=== PATIENT | male | born 1960 | race Caucasian/White ===

== ENCOUNTER → 2017-10-05 | Outpatient (CLI) | payer BC ==
[2015-03-16 13:00] VITALS: BMI 35.3
[~2017-10-05] MED LIST: ACE325 PO; ACET-2031 PO; AMO875 PO; AMOX-559 PO; AMOX1TAB9 PO; ANDROGEL; AUG875 PO; BACDS PO; CEP500 PO; ENOX40DI13 SC; ERT1P IV; GADOBENATE 529MG/1ML 15ML VIAL IVP ONE; GLI5 PO; GLY5 PO; HYDR1TAB PO; INSU100I30 SQ; LANI SC; LEV25 PO; LISI-362 PO; LIT300 PO; LIT300CAP PO; LITH300T18 PO; LOR5 PO; METF-415 PO; METF-420 PO; METXR500 PO; MOD100 PO; MODA200T55 PO; MOM PO; MULT-1335 PO; NICO1PAT TD; PAR20 PO; PARO10TA78 PO; PARO25TA18 PO; QUET25TA30 PO; QUET50TA21 PO; TESTOSTERONE INJ; VANC1FRO2 IV
--- NOTE | 2017-10-05 15:12 | RADIOLOGY IMAGING REPORT ---
FACILITY: [facility] [place] PATIENT NAME: Gallito Sanchez : 1960 MR: [id number] V: [id number] EXAM DATE: ORDERING PHYSICIAN: SOFIYA ESPINOZA TECHNOLOGIST: Location[place] [facility] [place] Patient: Gallito Sanchez : 1960 Visit/Account:[id number] Date of Sevice: 10/05/2017 BRAIN W W/O CONTRAST Comparisons: None. Additional pertinent history: Altered mental status TECHNIQUE: Multiplanar, multisequence brain MRI was performed with and without gadolinium contrast. CONTRAST: 15 ml of MultiHance. FINDINGS: Sagittal midline structures and craniocervical junction: Negative. Midline shift: None. Ventricles: Negative. Brain parenchyma: Diffusion weighted imaging: Negative. Gradient sequence: Negative. T2 weighted FLAIR images: Negative. Extra-axial spaces: Negative. Dural venous sinuses and major arterial flow voids: Negative. Intracranial enhancement: Negative.. Mastoid air cells and paranasal sinuses: Negative. Surrounding soft tissues and orbits: Negative. Impression: Normal brain MRI with and without contrast. Report Dictated By: Gallito Nguyen MD at 10/05/2017 3:04 PM Report E-Signed By: Gallito Nguyen MD at 10/05/2017 3:08 PM WSN:[id number]
== END ==
LOC: MRI 07:16
PROVIDERS: ATTEND Family Medicine
DX: R41.82 Altered mental status, unspecified (principal)
CPT/HCPCS: 70553; A9577

== ENCOUNTER → 2018-02-14 | Outpatient (CLI) | payer BC ==
[2015-03-16 13:00] VITALS: BMI 35.3
[~2018-02-14] MED LIST changes: -GADOBENATE 529MG/1ML 15ML VIAL IVP ONE; +METF-421 PO
== END ==
LOC: LAB 19:58
PROVIDERS: ATTEND Family Medicine
DX: F31.30 Bipolar disorder, current episode depressed, mild or moderate severity, unspecified (principal)
CPT/HCPCS: 36415; 80178

== ENCOUNTER 2019-01-02 14:00 | Outpatient (RCR) | payer BC ==
--- NOTE | 2018-12-30 11:38 | PT INITIAL EVALUATION ---
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 TREATMENT DIAGNOSIS: same DATE OF ONSET: approximately 3 months ago (Sep 2018) SUBJECTIVE: . Pt has a previous R) BKA and states that he has been addressing this wound at home with assistance from his for the past "few months". Pt is now concerned that this may progress to an amputation as well and would like to be more proactive in treatment. REHAB PROBLEM LIST: Open wound at L) foot PREVIOUS MEDICAL HISTORY: Previous R) BKA; DM OCCUPATION: Retired OBJECTIVE: Wound at L) foot; plantar surface of the 5th MTP joint measures 1.5cm L x 1.5cm W x 0.3cm D with significant periwound callus formation. Pt's orthodics show a wrinkle in this area and pt notes that he has not followed up with [employer]. ASSESSMENT: Non-excisional debridement completed with the use of scissors and tweezers to a depth of subcutaneous tissue in order to remove central area of yellow slough and bevel callused edges down to healthy wound base. Wound cleansed with sterile saline and covered with silver calcium alginate followed by donut of qwick for off loading and secured with medipore tape. Pt provided with primapore dressing in the event that this dressing becomes contaminated, overly saturated or dislodged. Custom orthodics show a wrinkle in the area of wound and PT will contact [facility] [place] to schedule an appointment and schedule consult with Dr. Klein to evaluate for total contact casting potential. Next vist with pt will be on 01/02 at 2:00pm in order to coordinate with schedule of [facility] [place] orthodics provider who will be available to adjustments to insole. Pt also scheduled with Dr. Klein on 01/07/29 to consult on need for total contact casting. Short Term Goals 1. Pt to demonstrate compliance with off loading and maintaining dressing clean, dry and intact between visits. 2. Wound bed to show 100% granulation with edges of dermis growing inward without encroachment of callus. 3. Pt to follow up effectively with specialists and manage medications as prescribed in order to maintain BS in safe range. 4. Wound to close fully without signs or symptoms of infection. Patient's Goals Wound to heal without further complications. PLAN: Patient to be seen for selective debridement of wound as indicated and advanced wound care product selection to maintain a protected, moist wound healing environment. PT to assist in coordinating consult visits to optimize off loading to encourage efficient wound healing. 1x/Week for up to 3 months Thank you for this referral. If you have any questions, comments, or concerns about this report or plan, please contact me at . H. Marni Albert, PT, MPT, OMS MTDD
[~2019-01-02 14:00] MED LIST changes: -METF-421 PO; +METF-452 PO
[2019-01-03 14:26] VITALS: BMI 41.1
== END 2019-01-02 18:00 | disposition home or self-care (01) ==
LOC: PT 14:00
PROVIDERS: ATTEND Family Medicine
DX: E11.621 Type 2 diabetes mellitus with foot ulcer (principal); L97.502 Non-pressure chronic ulcer of other part of unspecified foot with fat layer exposed
CPT/HCPCS: 97161

== ENCOUNTER 2019-01-02 15:29 | Inpatient (IN) | payer BC ==
[~2019-01-02] VITALS: Ht 180.3 cm; Wt 134.0 kg
--- NOTE | 2019-01-02 15:55 | ER Report ---
History and Physical Time Seen By MD: 15:48 Hx. of Stated Complaint: signs of infection in wound on left foot, vomiting, fever HPI/ROS CHIEF COMPLAINT: foot infection HISTORY OF PRESENT ILLNESS: Pt sent over from wound care for left leg infection. PT had lost his right lwer leg due to diabetic ulcer. Pt started with a new diabetic ulcer on ball of left foot 5 months ago. Started wound care on Sunday. was seen today by Carlee and was sent to the emergency department. The redness to the top of his foot and garza are new since Sunday. Pt states he has had tactile fevers and chills. Did vomit this morning but does not feel nauseated. Pt denies abd pain. Pt found to be hypoxic but states "that is not new..Dr. Espinoza keeps threatening me with oxygen". PT davi chest pain or abd pain. REVIEW OF SYSTEMS: Constitutional: + fever, + chills. Eyes: No discharge. ENT: No sore throat. Cardiovascular: No chest pain, no palpitations. Respiratory: No cough, no shortness of breath. Gastrointestinal: No abdominal pain, no vomiting. Genitourinary: No hematuria. Musculoskeletal: No back pain. Skin: + left diabetic ulcer of foot, + erythema to left lower leg Neurological: No headache. Allergies: Coded Allergies: No Known Drug Allergies (Verified , 05/07/12) Home Meds Reported Medications Insulin Glargine 100 Un/Ml Pen (LANTUS SOLOSTAR PEN) 100 Unit/1 Ml Insuln.pen, 30 UNIT SQ BID 02/19/15 Lisinopril (LISINOPRIL) 10 Mg Tablet, 10 MG PO QDAY 02/19/15 Paroxetine Hcl (PAROXETINE HCL) 25 Mg Tab.er.24h, 2 TAB PO QAM 02/19/15 Quetiapine Fumarate (SEROQUEL) 25 Mg Tablet, 2 TAB PO QHS 02/19/15 Modafinil (PROVIGIL) 200 Mg Tablet, 0.5 TAB PO QAM 02/19/15 [place] Carbonate (LITHIUM CARBONATE) 300 Mg Cap, 150 MG PO BID, CAP 02/19/15 Metformin Hcl (METFORMIN HCL) 1,000 Mg Tablet, 1 TAB PO BID, TAB 02/19/15 Discontinued Scripts Amoxicillin/Potassium Clav (AMOX TR-K CLV 875-125 MG TAB) 1 Each Tablet, 1 TAB PO Q12H, #14 TAB 0 Refills Prov:ANNA GARCIA MD 04/13/15 Past Medical/Surgical History pmhx: htn, bipolar, dm Pshx: RBKA Reviewed Nurses Notes: Yes Old Medical Records Reviewed: Yes Hx Smoking: Yes Smoking Status: Former Smoker (1ppd x 30 years) Hx Substance Use Disorder: No Hx Alcohol Use: No Constitutional Vital Sign - Last 24 Hours 01/02/19 01/02/19 15:39 15:50 Temp 99.5 Pulse 93 Resp 16 B/P (MAP) 152/73 Pulse Ox 81 O2 Delivery Room Air O2 Flow Rate 2.0 Physical Exam General Appearance: The patient is alert, has no immediate need for airway protection and no signs of toxicity. Eyes: Pupils equal and round no pallor or injection, EOMI ENT: no pharyngeal erythema or exudates, Mucous membranes are moist Respiratory: There are no retractions, lungs are clear to auscultation. Cardiovascular: Regular rate and rhythm. pulses are equal and symmetrical Gastrointestinal: Abdomen is soft and non tender, no masses, bowel sounds normal, no guarding, no rigidity or rebound, + obese Neurological: Cranial nerves II-XII grossly intact, no sensory or motor loss Skin: + 2cm ulceration at distal 5th metatarsal on left foot that has granulation tissue and is not draining and recently debrided; + erhythema and warmth to top of left foot with extension to mid garza on left. Musculoskeletal: Neck is supple non tender, no vertebral tenderness Upper Extremities are nontender, nonswollen and have full range of motion.; R lower extremity is BKA; left lower extremity full range of motion with swelling to top of left foot and erythema as per skin exam DIFFERENTIAL DIAGNOSIS: After history and physical exam differential diagnosis was considered for cellulitis, osteomyelitis, pneumonia Medical Decision Making Data Points Result Diagram: 01/02/19 1548 01/02/19 1548 Laboratory Hematology Test 01/02/19 00:00 01/02/19 15:48 [place] Level 0.9 mmol/L (0.6-1.2) Red Blood Count 5.14 M/uL (4.00-5.60) Mean Corpuscular Volume 86.9 fL (80.0-96.0) Mean Corpuscular Hemoglobin 27.8 pg (26.0-33.0) Mean Corpuscular Hemoglobin Concent 31.9 g/dL (32.0-36.0) Red Cell Distribution Width 16.5 % (11.5-14.5) Mean Platelet Volume 9.2 fL (7.2-11.1) Neutrophils (%) (Auto) 76.2 % (39.4-72.5) Lymphocytes (%) (Auto) 13.8 % (17.6-49.6) Monocytes (%) (Auto) 6.9 % (4.1-12.4) Eosinophils (%) (Auto) 2.5 % (0.4-6.7) Basophils (%) (Auto) 0.6 % (0.3-1.4) Nucleated RBC Relative Count (auto) 0.0 /100WBC Neutrophils # (Auto) 10.0 K/uL (2.0-7.4) Lymphocytes # (Auto) 1.8 K/uL (1.3-3.6) Monocytes # (Auto) 0.9 K/uL (0.3-1.0) Eosinophils # (Auto) 0.3 K/uL (0.0-0.5) Basophils # (Auto) 0.1 K/uL (0.0-0.1) Nucleated RBC Absolute Count (auto) 0.00 K/uL Sodium Level 136 mmol/L (137-145) Potassium Level 4.8 mmol/L (3.5-5.0) Chloride Level 102 mmol/L (98-107) Carbon Dioxide Level 24 mmol/L (22-30) Blood Urea Nitrogen 22 mg/dl (9-21) Creatinine 1.10 mg/dl (0.66-1.25) Glomerular Filtration Rate Calc > 60.0 Random Glucose 252 mg/dl (75-110) Lactate 2.2 mmol/L (0.7-2.1) Calcium Level 9.0 mg/dl (8.4-10.2) Total Bilirubin 1.1 mg/dl (0.2-1.3) Aspartate Amino Transf (AST/SGOT) 14 U/L (0-35) Alanine Aminotransferase (ALT/SGPT) 25 U/L (0-56) Alkaline Phosphatase 62 U/L (0-126) Total Protein 6.6 g/dl (6.3-8.2) Albumin 3.5 g/dl (3.5-5.0) Chemistry Test 01/02/19 00:00 01/02/19 15:48 [place] Level 0.9 mmol/L (0.6-1.2) White Blood Count 13.1 k/uL (4.5-11.0) Red Blood Count 5.14 M/uL (4.00-5.60) Hemoglobin 14.3 g/dL (14.0-18.0) Hematocrit 44.7 % (42.0-52.0) Mean Corpuscular Volume 86.9 fL (80.0-96.0) Mean Corpuscular Hemoglobin 27.8 pg (26.0-33.0) Mean Corpuscular Hemoglobin Concent 31.9 g/dL (32.0-36.0) Red Cell Distribution Width 16.5 % (11.5-14.5) Platelet Count 253 K/uL (150-450) Mean Platelet Volume 9.2 fL (7.2-11.1) Neutrophils (%) (Auto) 76.2 % (39.4-72.5) Lymphocytes (%) (Auto) 13.8 % (17.6-49.6) Monocytes (%) (Auto) 6.9 % (4.1-12.4) Eosinophils (%) (Auto) 2.5 % (0.4-6.7) Basophils (%) (Auto) 0.6 % (0.3-1.4) Nucleated RBC Relative Count (auto) 0.0 /100WBC Neutrophils # (Auto) 10.0 K/uL (2.0-7.4) Lymphocytes # (Auto) 1.8 K/uL (1.3-3.6) Monocytes # (Auto) 0.9 K/uL (0.3-1.0) Eosinophils # (Auto) 0.3 K/uL (0.0-0.5) Basophils # (Auto) 0.1 K/uL (0.0-0.1) Nucleated RBC Absolute Count (auto) 0.00 K/uL Glomerular Filtration Rate Calc > 60.0 Lactate 2.2 mmol/L (0.7-2.1) Calcium Level 9.0 mg/dl (8.4-10.2) Total Bilirubin 1.1 mg/dl (0.2-1.3) Aspartate Amino Transf (AST/SGOT) 14 U/L (0-35) Alanine Aminotransferase (ALT/SGPT) 25 U/L (0-56) Alkaline Phosphatase 62 U/L (0-126) Total Protein 6.6 g/dl (6.3-8.2) Albumin 3.5 g/dl (3.5-5.0) Toxicology Test 01/02/19 00:00 [place] Level 0.9 mmol/L (0.6-1.2) EKG/Imaging Imaging see report ED Course/Re-evaluation Clinical Indication for ER IV: IV Access ED Course check labs including lactate and cultures. Will need to have abx. 01/02/2019 5:10:[address] rowley accepts patient for admission. will add MRI of foot. Decision to Disposition Date: Jan 02, 2019 Decision to Disposition Time: 17:10 Depart Departure Latest Vital Signs Vital Signs Date Time Temp Pulse Resp B/P (MAP) Pulse Ox O2 Delivery O2 Flow Rate FiO2 01/02/19 15:50 2.0 01/02/19 15:39 99.5 93 16 152/73 81 Room Air Impression: Primary Impression: Cellulitis of left foot Additional Impression: Diabetic foot ulcer Condition: Condition Unchanged Disposition: Admitted from ER Referrals: SOFIYA ESPINOZA DO (PCP) Problem Qualifiers Additional Impression: Diabetic foot ulcer Diabetic foot ulcer location: unspecified part of foot Diabetes mellitus type: type 2 Laterality: left Non-pressure ulcer stage: with fat layer exposed Qualified Codes: E11.621 - Type 2 diabetes mellitus with foot ulcer ; L97.522 - Non-pressure chronic ulcer of other part of left foot with fat layer exposed NBA BRUNSON DO Jan 02, 2019 15:55
[2019-01-02] MEDS ORDERED: NS(*) 0.9% 1000 ML BAG 1,000 ML IV ONE (16:04)
[2019-01-02 16:15] LABS: PLATELET COUNT, AUTOMATED 253 K/uL (150-450)
[2019-01-02] MEDS ORDERED: PIPERACILLIN/TAZO* 4.5 GM VIAL 4.5 GM in NS(*) 0.9% 100 ML MINI-BAG 100 ML IVPB ONE (16:15)
--- NOTE | 2019-01-02 16:49 | RADIOLOGY IMAGING REPORT ---
FAC[place] [facility] [place]IENT NAME: Gallito Sanchez : 1960 MR: [id number] V: [id number] EXAM DATE: ORDERING PHYSICIAN: NBA BRUNSON TECHNOLOGIST: [facility] Patient: Gallito Sanchez : 1960 Visit/Account:[id number] Date of Sevice: 01/02/2019 Exam type: FOOT 3 VIEW LEFT History: foot ulcer under 5th metatarsal; r/o osteo Comparison: None. Findings: There is extensive soft tissue swelling lateral to the left MTP joint there are mild areas of focal o steopenia involving the distal head of the left fifth metatarsal and the medial base of the proximal phalanx of the left fifth toe. These could be early changes of osteomyelitis there is a subtle amoun t of adjacent soft tissue gas. Incidentally noted is hallux valgus deformity involving the left firs t metatarsal phalangeal joint and moderate degenerative changes involving the IP joint left great toe IMPRESSION: 1. Extensive soft tissue swelling lateral to the left fifth MTP joint with suggestion of a small lavon unt of adjacent soft tissue gas and areas of focal osteopenia involving the distal head the left fift h metatarsal and medial base of the proximal phalanx of the left fifth toe. These findings may repre sent osteomyelitis. MR is recommended for further evaluation Report Dictated By: Chela Rodatre MD at 01/02/2019 4:42 PM Report E-Signed By: Chela Rodarte MD at 01/02/2019 4:45 PM WSN:[email or web address]
--- NOTE | 2019-01-02 16:53 | RADIOLOGY IMAGING REPORT ---
FACILITY: [facility] - [place] PATIENT NAME: Gallito Sanchez : 1960 MR: [id number] V: [id number] EXAM DATE: [id number] ORDERING PHYSICIAN: NBA BRUNSON TECHNOLOGIST: Location: [facility] [place] Patient: Gallito Sanchez : 1960 Visit/Account:[id number] Date of Sevice: 01/02/2019 Exam type: CHEST PA LAT History: FEVER Comparison: February 25, 2015. Findings: There is extensive peribronchial thickening throughout the lungs which has increased when compared th e prior study. No lobar consolidation identified. There is no evidence of pleural effusions. The c ardiac silhouette is normal in size. There are spondylotic changes of the thoracic spine. The media stinum appears slightly widened although this likely related to the apical lordotic projection of the study IMPRESSION: 1. There is marked peribronchial thickening bilaterally which has increased when compared to the luis or study. Given the clinical history this likely represents an acute infectious/inflammatory process The mediastinum appears slightly widened although this is likely related to the apical lordotic proje ction of the study Report Dictated By: Chela Rodarte MD at 01/02/2019 4:45 PM Report E-Signed By: Chela Rodarte MD at 01/02/2019 4:48 PM WSN:[email or web address]
[2019-01-02 19:10] VITALS: BP 162/78
[2019-01-02] MEDS ORDERED: ACETAMINOPHEN 500 MG TAB PO PRN (20:55)
--- NOTE | 2019-01-02 21:06 | History & Physical ---
History of Present Illness Chief Complaint Redness of foot History of Present Illness This patient presented to his outpatient wound care appointment and was noted to have increased redness to the left foot. He has been receiving wound care for an ulcer to the plantar surface of the foot, but was noted to have increased warmth and redness along the dorsal surface extending up into the lower leg. History Problems: (1) Diabetes Status: Chronic (2) Bipolar disorder Status: Chronic (3) HTN (hypertension) Status: Chronic (4) Hx of right BKA Status: Chronic (5) Diabetic foot ulcer Status: Chronic Home Meds Reported Medications Insulin Glargine 100 Un/Ml Pen (LANTUS SOLOSTAR PEN) 100 Unit/1 Ml Insuln.pen, 30 UNIT SQ BID 02/19/15 Lisinopril (LISINOPRIL) 10 Mg Tablet, 10 MG PO QDAY 02/19/15 Paroxetine Hcl (PAROXETINE HCL) 25 Mg Tab.er.24h, 2 TAB PO QAM 02/19/15 Modafinil (PROVIGIL) 200 Mg Tablet, 0.5 TAB PO QAM 02/19/15 [place] Carbonate (LITHIUM CARBONATE) 300 Mg Cap, 150 MG PO BID, CAP 02/19/15 Metformin Hcl (METFORMIN HCL) 1,000 Mg Tablet, 1 TAB PO BID, TAB 02/19/15 Discontinued Reported Medications Quetiapine Fumarate (SEROQUEL) 25 Mg Tablet, 2 TAB PO QHS 02/19/15 Discontinued Scripts Amoxicillin/Potassium Clav (AMOX TR-K CLV 875-125 MG TAB) 1 Each Tablet, 1 TAB PO Q12H, #14 TAB 0 Refills Prov:ANNA GARCIA MD 04/13/15 Allergies: Coded Allergies: No Known Drug Allergies (Verified , 05/07/12) Patient History: FH: diabetes mellitus Cousin, Aunt, and Uncles FH: liver cancer FATHER FH: macular degeneration MOTHER Prostate problems Siblings x 3 Hx Smoking: Yes Smoking Status: Former Smoker Caffeine Intake: Soda Caffeine/Cups Per Day: 3 Hx Alcohol Use: No Hx Substance Use Disorder: No Social Drug Use: Former Social Drugs: Marijuana Review of Systems All Systems Reviewed/Normal: Yes Exam Vital Signs Vital Signs Date Time Temp Pulse Resp B/P (MAP) Pulse Ox O2 Delivery O2 Flow Rate FiO2 01/02/19 19:29 90 Nasal Cannula 2.5 01/02/19 19:10 98.1 75 14 162/78 (106) Neuro: No Gross deficits Cardiovascular: Regular Rate and Rhythm Respiratory: Clear to Auscultation GI: Abd Soft and Non-Tender Integumentary: Other (Wound on plantar suface without redeness or discharge. Dorsal suface of left foot is red and outlined with ink.) Medical Decision Making Data Points Result Diagram: 01/02/19 1548 01/02/19 1548 Assessment and Plan Problems: (1) Cellulitis of left foot Status: Acute Assessment & Plan: He was noted to have increased redness to the dorsal surface of the left foot extending to the lower leg. An ink line was drawn on ad mission. His MRI is reported to show osteomyelitis of the first metatarsal and a possible abscess. He has been started on treatment with Zosyn. Surgery has been contacted and Dr. Garcia will evaluate him in the morning. DVT prophylaxis has not been ordered until a surgical plan is in place. (2) Diabetic foot ulcer Status: Chronic Assessment & Plan: He has been receiving wound care as an outpatient. (3) DMII (diabetes mellitus, type 2) Assessment & Plan: He is on chronic treatment with Lantus and metformin. The metformin has been stopped secondary to lactic acidosis. He has been placed on sliding scale level #2. (4) HTN (hypertension) Status: Chronic Assessment & Plan: He is on chronic treatment with lisinopril. (5) Bipolar disorder Status: Chronic Assessment & Plan: He is on chronic treatment with lithium, Provigil, and paroxetine. Copies to: SOFIYA ESPINOZA DO ; Venous Thromboembolism Antithrombotics Is Pt On Any Antithrombotics?: No Exam Sepsis Risk: No Definite Risk Problem Qualifiers (1) Diabetic foot ulcer: Diabetic foot ulcer location: unspecified part of foot Diabetes mellitus type: type 2 Laterality: left Non-pressure ulcer stage: with fat layer exposed Qualified Codes: E11.621 - Type 2 diabetes mellitus with foot ulcer; L97.522 - Non-pressure chronic ulcer of other part of left foot with fat layer exposed ANNA FULLER DO Jan 02, 2019 21:06
[2019-01-02] MEDS: LITHIUM CARBONATE 150 MG CAP PO SCH (21:23)
[2019-01-02] MEDS: INSULIN GLARGINE 100 U/ML 3 ML PEN SQ SCH (21:24)
[2019-01-02] MEDS: PIPERACILLIN/TAZO* 4.5 GM VIAL 4.5 GM in NS(*) 0.9% 100 ML MINI-BAG 100 ML IVPB SCH (21:26)
[2019-01-02] MEDS ORDERED: NS(*) 0.9% 1000 ML BAG 1,000 ML ONE (21:26)
[2019-01-02 22:59] VITALS: BP 118/71
[2019-01-02] MEDS: LISINOPRIL 10 MG TAB PO SCH (23:03)
[2019-01-02] MEDS: LOPERAMIDE HCL 2 MG CAP PO SCH (23:03)
[2019-01-03] MEDS: PIPERACILLIN/TAZO* 4.5 GM VIAL 4.5 GM in NS(*) 0.9% 100 ML MINI-BAG 100 ML IVPB SCH ×4 (04:04→21:30)
[2019-01-03 06:01] LABS: PLATELET COUNT, AUTOMATED 228 K/uL (150-450)
[2019-01-03 07:09] VITALS: BP 150/75
[2019-01-03] MEDS: MODAFINIL 100 MG TAB PO SCH (08:00)
[2019-01-03] MEDS: LOPERAMIDE HCL 2 MG CAP PO SCH ×2 (08:00→21:18)
[2019-01-03] MEDS: LISINOPRIL 10 MG TAB PO SCH (08:00)
[2019-01-03] MEDS: LITHIUM CARBONATE 150 MG CAP PO SCH ×2 (08:01→21:18)
[2019-01-03] MEDS: PAROXETINE HCL 12.5 MG PO SCH (08:01)
[2019-01-03] MEDS: INSULIN GLARGINE 100 U/ML 3 ML PEN SQ SCH ×2 (08:02→21:19)
[2019-01-03] MEDS: INSULIN HUM LISPRO 100 UN/ML 3 ML VIAL SUBQ PRN ×4 (08:02→21:16)
--- NOTE | 2019-01-03 08:14 | RADIOLOGY IMAGING REPORT ---
FACILITY: [facility] - [place] PATIENT NAME: Gallito Sanchez : 1960 MR: [id number] V: [id number] EXAM DATE: ORDERING PHYSICIAN: NBA BRUNSON TECHNOLOGIST: Location: [facility] Patient: Gallito Sanchez : 1960 Visit/Account:[id number] Date of Sevice: 01/02/2019 MR FOOT LT W/O CON COMPARISON: Left foot radiographs 01/02/2019. HISTORY: diabetic foot ulcer/cellulitis. TECHNIQUE: Multiplanar MRI of the left forefoot utilizing T1 weighted and fluid sensitive sequences. CONTRAST: None. FINDINGS: Suboptimal study due to moderate motion artifact on several sequences. BONES : Moderate focal bone marrow edema in the medial head and neck of the first metatarsal, seen a s low T1 and hyperintense T2/STIR signal. No anna destructive changes are appreciated but this is co ntiguous with a small fluid collection medially which could be an abscess and overall these findings are suspicious for osteomyelitis. A gouty erosion with reactive bone marrow edema is also considered. Mild bone marrow edema, fifth metatarsal head, nonspecific but no anna destructive changes present. Mild multifocal bone marrow edema in the medial and middle cuneiform consider degenerative. Alignment within normal limits for nonweightbearing study. FLUID: There is no effusion. 3 x 9 x 7 mm T2 hyperintense apparent fluid collection medial to the fi rst metatarsal head and first MTP joint, probably a small soft tissue abscess, no evidence of interna l gas by MRI or plain films. A gouty tophus could have a similar appearance although this is probably near the bone rather than eroding it. No calcification at this site on plain films but this does not exclude a tophus. SOFT TISSUES: Diffuse muscle atrophy and edema, suggesting long-standing neuropathy. Moderate mostly dorsal subcutaneous fat edema throughout the forefoot which could be due to cellulitis. OTHER: Negative. IMPRESSION: 1. Suboptimal study of the left forefoot due to moderate motion artifact. 2. Focal bone marrow edema, first metatarsal head with an adjacent subcentimeter mass which is presu mably a small soft tissue abscess. Taken together these findings are suspicious for osteomyelitis. A gouty tophus with reactive bone marrow edema is possible but considerably less likely. 3. Mild bone marrow edema in the fifth metatarsal head which is nonspecific. 4. Diffuse muscle atrophy and edema likely related to long-standing neuropathy. 5. Diffuse soft tissue edema most consistent with cellulitis. Preliminary report provided patient's nurse Daniel at 7:45 PM by my colleague, indicating that this was a technically limited study due to motion artifact, and that there were findings suspicious for oste omyelitis in the head and neck of the first metatarsal with an adjacent 7 mm fluid collection suspici ous for abscess, as well as cellulitis. Report Dictated By: Jhon Busch at 01/03/2019 8:01 AM Report E-Signed By: Jhon Busch at 01/03/2019 8:09 AM WSN:[email or web address]
[2019-01-03] MEDS ORDERED: LISINOPRIL 10 MG TAB PO SCH (09:00)
--- NOTE | 2019-01-03 10:02 | Hospitalist Progress Note ---
Subjective Progress Notes Subjective He was admitted with osteomyelitis. He had no acute events overnight. Patient Complains of: Cardiovascular: No: Chest Pain Respiratory: No: Shortness of Breath Physical Exam Vital Signs Date Time Temp Pulse Resp B/P (MAP) Pulse Ox O2 Delivery O2 Flow Rate FiO2 01/03/19 07:09 98.9 71 18 150/75 (100) 93 Nasal Cannula 3.0 Intake and Output 01/03/19 07:00 Intake Total 1200 ml Balance 1200 ml IV Total 1200 ml # Voids 2 # Bowel Movements 1 General Appearance: Alert, Awake, No Acute Distress, Afebrile Neuro: No Gross deficits Cardiovascular: Regular Rate and Rhythm Respiratory: No Respiratory Distress, Clear to Auscultation Integumentary: Other (cellulitis noted to foot, outline for cellulitis) Psych: Alert & Oriented X3, Appropriate Mood & Affect Result Diagram: 01/03/1954001/03/19540 Assessment and Plan Problems: (1) Cellulitis of left foot Status: Acute Assessment & Plan: He was noted to have increased redness to the dorsal surface of the left foot extending to the lower leg. An ink line was drawn on admission. His MRI is reported to show osteomyelitis of the first metatarsal and a possible abscess. He has been started on treatment with Zosyn. Surgery has been contacted and Dr. Klein will evaluate him today. DVT prophylaxis has not been ordered until a surgical plan is in place. (2) Diabetic foot ulcer Status: Chronic Assessment & Plan: He has been receiving wound care as an outpatient. (3) DMII (diabetes mellitus, type 2) Assessment & Plan: He is on chronic treatment with Lantus and metformin. The metformin has been stopped secondary to lactic acidosis. He has been placed on sliding scale level #2. (4) HTN (hypertension) Status: Chronic Assessment & Plan: He is on chronic treatment with lisinopril. (5) Bipolar disorder Status: Chronic Assessment & Plan: He is on chronic treatment with lithium, Provigil, and paroxetine. Exam Sepsis Risk: No Definite Risk Problem Qualifiers (1) Diabetic foot ulcer: Diabetic foot ulcer location: unspecified part of foot Diabetes mellitus type: type 2 Laterality: left Non-pressure ulcer stage: with fat layer exposed Qualified Codes: E11.621 - Type 2 diabetes mellitus with foot ulcer; L97.522 - Non-pressure chronic ulcer of other part of left foot with fat layer exposed (2) HTN (hypertension): Hypertension type: essential hypertension Qualified Codes: I10 - Essential (primary) hypertension THADDEUS COVARRUBIAS REFINERY [employer]ATOR [employer] [facility] Jan 03, 2019 10:02
--- NOTE | 2019-01-03 11:24 | Antimicrobial Stewardship ---
Antimicrobial Stewardship Empiricly appropriate: Yes (Osteomyelitis of the Foot - Zosyn) Significant PMH: Yes (DM2, HTN, Bipolar, Osteomyelitis- wound, neuropathy) Support empiric regimen: Yes (Zosyn) Approriate Cultures done: Yes (Blood Cx x 2 pending- NGTD) Determine cumulative duration: Today is day 2 of Zosyn Determine standard duration: Unknown, depends upon surgical plan Comment 58 yo M with a history of DM2, HTN, Bipolar Disorder, foot wound, neuropathy who presented to the ED following outpatient therapy. PT assessment was increased redness, vomiting, and fever. Tmax 99.5 WBC 13.1 Neuts 76-83% Blood Cx x 2 on 01/02 -->NGTD Scr 1 Lactate-->2.2-->0.8 Zosyn 4.5 g IV Q6H, started on 01/02 Foot MRI- Showed osteomyelitis and possible abscess Foot Xray - 5th MTP, focal osteopenia, soft tissue gas, suspicious for osteomyelitis Plan to continue antibiotics for osteomyelitis until definitive plan for surgical intervention is decided. Will continue to monitor. Piedad White, PharmD, BCOP PIEDAD WHITE Jan 03, 2019 11:24
[2019-01-03 11:31] VITALS: BP 166/81
[2019-01-03 14:26] VITALS: Ht 180.3 cm; Wt 134.0 kg
--- NOTE | 2019-01-03 14:33 | Medical Nutrition Therapy ---
Nutrition Anthropometrics Height (Inches): 71.00 Height (Calculated Centimeters: 180.499759 Weight (Pounds): 295 Weight (Calculated Kilograms): 134.037 BMI: 41.2 Luis Carlos Nutrition Score: Adequate Luis Carlos Nutrition Risk Score: 18 Dietary Referral Nutrition Risk Factors: Non-Healing Wound Nutrition Risk Comment: Physical Findings Physical Appearance: Morbidly Obese 40+ Skin Appearance Skin Appearance: Edema Edema Location Modifier: Right Edema Location: Foot Type of Edema: Degree of Edema: 1+ Gastrointestinal Symptoms GI Symtoms: Nausea, Vomiting Tube Present: Bowel Sounds: Recent Bowel Pattern: Stool Characteristics: Nutritional Diagnosis Nutritional Risk Acuity 2: Abcess/Non-Healing Wound Nutritional Risk Acuity 3: Morbid Obesity Nutritional Risk Acuity 4: Good Appetite, Modified Diet Past Medical History: DMII, Bipolar, Depression,s/p Lap band surgery, s/p BKA Nutritional Acuity: 2-Moderate Nutrition Diagnosis: Increased Nutrient Needs Nutrition Etiology: Physiological Causes Nutrition Problem/Etiology/Sym: AEB non- healing wound/diabetic foot ulcer Adjusted Energy Requirement Re: 2680 (20gm/kg) Protein Requirement: 103 (1.3gm/kg IBW) Fluid Requirement: 2680 (20 ml/kg) Diet Type: Diabetic Nutrition Intervention: Cont diet as ordered, Encourage intake Nutrition Monitoring & Eval Nutrition Goals: Eat 75-100% Meal RD Patient Assessment Time: [address] Assessment Type: RD Assessment Patient Nutrition Acuity: 2-Moderate Follow Up Date: Jan 08, 2019 Nutritional Comment: 01/03 Pt admitted with non-healing wound/diabetic foot ulcer. Pt has Rt BKA. Pt reporting N/V. Pt on diabetic diet and eating 75-100% of meals. BG ranging 164-252. Pt is reciving insulin. Will cont to monitor and encourage intake. Will offer diabetic diet education when appropirate. COLIN WATSON Jan 03, 2019 14:33
[2019-01-03 15:06] VITALS: BP 133/70
[2019-01-03] MEDS ORDERED: LORazepam 2 MG/ML VIAL IVP ONE ×2 (15:25→15:40)
[2019-01-03 15:32] VITALS: BP 124/86
--- NOTE | 2019-01-03 16:10 | General Surgery Consultation ---
History of Present Illness Requesting Physician Hospitalist service Reason for Consult Osteomyelitis in the head of his 5th metatarsal bone on his left foot Chief Complaint Chronic wound, plantar surface of left foot History of Present Illness 58-year-old gentleman who has chronic long-term poorly controlled diabetes and who developed osteomyelitis in his right foot and I amputated his right foot via BKA almost 4 years ago. He now comes in with several weeks of a worsening wound on the plantar surface of the 5th metatarsal head of his left foot. This was resulting in edema and erythema on the dorsum of his left foot. He has no other complaints today. History Problems: (1) Diabetes Status: Chronic (2) Bipolar disorder Status: Chronic (3) Diabetic foot ulcer Status: Chronic (4) HTN (hypertension) Status: Chronic (5) Hx of right BKA Status: Chronic Home Meds Reported Medications Insulin Glargine 100 Un/Ml Pen (LANTUS SOLOSTAR PEN) 100 Unit/1 Ml Insuln.pen, 30 UNIT SQ BID 02/19/15 Lisinopril (LISINOPRIL) 10 Mg Tablet, 10 MG PO QDAY 02/19/15 Paroxetine Hcl (PAROXETINE HCL) 25 Mg Tab.er.24h, 2 TAB PO QAM 02/19/15 Modafinil (PROVIGIL) 200 Mg Tablet, 0.5 TAB PO QAM 02/19/15 [place] Carbonate (LITHIUM CARBONATE) 300 Mg Cap, 150 MG PO BID, CAP 02/19/15 Metformin Hcl (METFORMIN HCL) 1,000 Mg Tablet, 1 TAB PO BID, TAB 02/19/15 Discontinued Reported Medications Quetiapine Fumarate (SEROQUEL) 25 Mg Tablet, 2 TAB PO QHS 02/19/15 Discontinued Scripts Amoxicillin/Potassium Clav (AMOX TR-K CLV 875-125 MG TAB) 1 Each Tablet, 1 TAB PO Q12H, #14 TAB 0 Refills Prov:ANNA GARCIA MD 04/13/15 Allergies: Coded Allergies: No Known Drug Allergies (Verified , 05/07/12) Family History: FH: diabetes mellitus Cousin, Aunt, and Uncles FH: liver cancer FATHER FH: macular degeneration MOTHER Prostate problems Siblings x 3 Review of Systems All Systems Reviewed/Normal: Yes, Except as Noted Exam Vital Signs Vital Signs Date Time Temp Pulse Resp B/P (MAP) Pulse Ox O2 Delivery O2 Flow Rate FiO2 01/03/19 11:31 99.4 83 18 166/81 (109) 93 Nasal Cannula 3.0 General Appearance: Alert, Awake, No Acute Distress, Afebrile Neuro: No Gross deficits Eyes: PERRLA Extremities: Warm, Perfused, Other (his left lower leg is warm and perfused with good capillary refill. He has palpable dorsalis pedis and posterior tibial pulses. On the dorsum of his left foot, overlying the midfoot, about the lateral two thirds of the dorsum of the midfoot, is an area of edema and erythema. There is no skin breakdown in this area. On the plantar surface of the 5th metatarsal head is a ulcer with exposed underlying soft tissue. I do not feel a tract to the bone.) Psych: Alert & Oriented X3, Appropriate Mood & Affect Medical Decision Making Data Points Result Diagram: 01/03/19 0541 01/03/19 0541 Assessment and Plan Problems: (1) Diabetic foot ulcer Status: Chronic Assessment & Plan: 01/03/19: I have reviewed extensively the MRI results and it indicates that there is osteomyelitis in the head of the 1st metatarsal bone but there is no wound in the area of the head of the 1st metatarsal bone. He does have a diabetic ulcer on the plantar surface of the 5th metatarsal head. I don't feel any obvious communication with the bone and there is no obvious osteomyelitis at this location on MRI. I have discussed these findings extensively with our radiologist and she has recommended another MRI but with IV contrast and that this would probably, assuming he can keep his foot still for the duration of this study, improve our chances of determining where there is likely infection involving the bone. After this test is completed, would develop further plans based on those results. Recommend continuing wound care in the meantime and continuing IV antibiotics for cellulitis. If the MRI still reveals osteomyelitis in the 1st metatarsal head then may require debridement of the callus on the ball of his foot to see if there is any underlying wound. If there is osteomyelitis in the 1st and the 5th metatarsal head then we'll need to discuss transmetatarsal amputation versus BKA. He did discuss with me today that if any amputation is needed that he would like to proceed just with BKA since, on his other leg, he had sequential amputations of toes, then transmetatarsal amputation then BKA and he would like to avoid the prolonged course he experienced on the other side. I told him that I do not recommend proceeding directly with the BKA if only a single transmetatarsal/toe amputation is r equired but if more than one is required then the options would be TMA or BKA. I worry about his ability to ambulate on bilateral BKA's with bilateral prostheses especially in the context of his body habitus. He indicates his understanding of this discussion today and his questions have been answered and we will proceed with another MRI but with IV contrast and then developed more definitive plans after the study is completed. (2) Cellulitis of left foot Status: Acute (3) Hx of right BKA Status: Chronic (4) Bipolar disorder Status: Chronic (5) Diabetes Status: Chronic (6) HTN (hypertension) Status: Chronic Condition Stable Time Spent: < 30 min Venous Thromboembolism Antithrombotics Is Pt On Any Antithrombotics?: No Problem Qualifiers (1) Diabetic foot ulcer: Diabetic foot ulcer location: unspecified part of foot Diabetes mellitus type: type 2 Laterality: left Non-pressure ulcer stage: with fat layer exposed Qualified Codes: E11.621 - Type 2 diabetes mellitus with foot ulcer; L97.522 - Non-pressure chronic ulcer of other part of left foot with fat layer exposed (2) Diabetes: Diabetes mellitus type: type 2 Diabetes mellitus mcc insulin use: with mcc use Diabetes mellitus complication status: with neurologic complications Diabetes mellitus complication detail: with unspecified neuropathy Qualified Codes: E11.40 - Type 2 diabetes mellitus with diabetic neuropathy, unspecified; Z79.4 - termite helper (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
[2019-01-03 19:40] VITALS: BP 135/68
[2019-01-03 22:50] VITALS: BP 152/82
[2019-01-04] MEDS: PIPERACILLIN/TAZO* 4.5 GM VIAL 4.5 GM in NS(*) 0.9% 100 ML MINI-BAG 100 ML IVPB SCH ×4 (03:49→20:30)
[2019-01-04 07:12] VITALS: BP 148/83
[2019-01-04] MEDS: INSULIN HUM LISPRO 100 UN/ML 3 ML VIAL SUBQ PRN ×4 (07:21→20:26)
--- NOTE | 2019-01-04 08:34 | RADIOLOGY IMAGING REPORT ---
[place] [facility] [place] NAME: Gallito Sanchez : 1960 MR: [id number] V: [id number] EXAM DATE: ORDERING PHYSICIAN: GLENN LEDEZMA TECHNOLOGIST: Location: [facility] Patient: Gallito Sanchez : 1960 Visit/Account:[id number] Date of Sevice: 01/03/2019 MR FOOT LT W & W/O CON HISTORY: Infection. Evaluate for abscess. COMPARISON: MRI left foot without contrast 01/02/2019 TECHNIQUE: Multiplanar/multisequence was obtained through the left foot without and with contrast. CONTRAST: 15 cc of MultiHance FINDINGS: Examination is markedly limited by motion. Soft tissues: 1 cm focus of peripherally enhancing fluid medial to the first metatarsal head. Soft ti ssue edema at the dorsum of the foot extending laterally with enhancement consistent with cellulitis. Bones: Bone marrow edema and enhancement within the first metatarsal head and neck with focus of bone marrow replacement on T1-weighted images concerning for osteomyelitis. Mild bone marrow edema at the plantar aspect of the fifth metatarsal head without replacement. Joint effusion: None significant IMPRESSION: 1. The examination is limited by motion. Findings once again are concerning for osteomyelitis involvi ng the first metatarsal head and neck with a small 1 cm adjacent abscess. Edema and enhancement withi n the soft tissues at the dorsum of the foot extending laterally consistent with cellulitis. As discu ssed previously gout also within the differential although recommend clinical correlation. Report Dictated By: Tyrell Christiansen MD at 01/04/2019 8:21 AM Report E-Signed By: Tyrell Christiansen MD at 01/04/2019 8:30 AM [id number]
[2019-01-04] MEDS ORDERED: INFLUENZA VIRUS VAC 0.5ML SYR IM ONLY ONE (09:00)
[2019-01-04] MEDS ORDERED: DONEPEZIL HCL 5 MG TAB PO SCH (09:00)
[2019-01-04] MEDS: LOPERAMIDE HCL 2 MG CAP PO SCH ×2 (09:24→20:26)
[2019-01-04] MEDS: PAROXETINE HCL 12.5 MG PO SCH (09:24)
[2019-01-04] MEDS: LITHIUM CARBONATE 150 MG CAP PO SCH ×2 (09:25→20:26)
[2019-01-04] MEDS: MODAFINIL 100 MG TAB PO SCH (09:25)
[2019-01-04] MEDS: INSULIN GLARGINE 100 U/ML 3 ML PEN SQ SCH ×2 (09:25→20:27)
[2019-01-04] MEDS: LISINOPRIL 10 MG TAB PO SCH (09:25)
--- NOTE | 2019-01-04 10:44 | Hospitalist Progress Note ---
Subjective Progress Notes Subjective No new complaints. Physical Exam Vital Signs Date Time Temp Pulse Resp B/P (MAP) Pulse Ox O2 Delivery O2 Flow Rate FiO2 01/04/19 07:12 83 01/04/19 07:12 Nasal Cannula 4.0 01/04/19 07:12 98.8 66 20 148/83 (104) Intake and Output 01/04/19 07:00 Intake Total 840 ml Output Total 1000 ml Balance -160 ml Intake Oral 840 ml Output Urine Total 1000 ml # Voids 8 # Bowel Movements 2 General Appearance: Alert, Awake, No Acute Distress Eyes: PERRLA Cardiovascular: Regular Rate and Rhythm Respiratory: Clear to Auscultation GI: Soft and Non-Tender Extremities: Warm, Perfused, Other (R BKA, L foot wrapped. No drainage visible.) Integumentary: Other (See above.) Psych: Alert & Oriented X3, Appropriate Mood & Affect Result Diagram: 01/03/1941 01/03/19 0541 Imaging FACILITY: [facility] [place] PATIENT NAME: Gallito Sanchez : 1960 MR: [id number] V: [id number] EXAM DATE: ORDERING PHYSICIAN: GLENN LEDEZMA TECHNOLOGIST: Location: [facility] Patient: Gallito Sanchez : 1960 Visit/Account:[id number] Date of Sevice: 01/03/2019 MR FOOT LT W & W/O CON HISTORY: Infection. Evaluate for abscess. COMPARISON: MRI left foot without contrast 01/02/2019 TECHNIQUE: Multiplanar/multisequence was obtained through the left foot without and with contrast. CONTRAST: 15 cc of MultiHance FINDINGS: Examination is markedly limited by motion. Soft tissues: 1 cm focus of peripherally enhancing fluid medial to the first metatarsal head. Soft tissue edema at the dorsum of the foot extending laterally with enhancement consistent with cellulitis. Bones: Bone marrow edema and enhancement within the first metatarsal head and neck with focus of bone marrow replacement on T1-weighted images concerning for osteomyelitis. Mild bone marrow edema at the plantar aspect of the fifth metatarsal head without replacement. Joint effusion: None significant IMPRESSION: 1. The examination is limited by motion. Findings once again are concerning for osteomyelitis involving the first metatarsal head and neck with a small 1 cm adjacent abscess. Edema and enhancement within the soft tissues at the dorsum of the foot extending laterally consistent with cellulitis. As discussed previously gout also within the differential although recommend clinical correlation. Report Dictated By: Tyrell Christiansen MD at 01/04/2019 8:21 AM Report E-Signed By: Tyrell Christiansen MD at 01/04/2019 8:30 AM [id number] Assessment and Plan Problems: (1) Cellulitis of left foot Status: Acute Assessment & Plan: He was noted to have increased redness to the dorsal surface of the left foot extending to the lower leg. An ink line was drawn on admission. His initial MRI (without contrast) is reported to show osteomyelitis of the first metatarsal and a possible abscess. A repeat MRI with contrast confirms the same. He has been started on treatment with Zosyn. Dr. Klein evaluated him and is considering debridement. For now will continue IV antibiotics. DVT prophylaxis was on hold while a surgical plan was made. It appears he will likely not have surgery until next week. Will place on Lovenox for now. (2) Diabetic foot ulcer Status: Chronic Assessment & Plan: He has been receiving wound care as an outpatient. (3) DMII (diabetes mellitus, type 2) Assessment & Plan: He is on chronic treatment with Lantus and metformin. The metformin has been stopped secondary to lactic acidosis. He has been placed on sliding scale level #2 in addition to his usual Lantus 30mg bid. (4) HTN (hypertension) Status: Chronic Assessment & Plan: He is on chronic treatment with lisinopril. (5) Bipolar disorder Status: Chronic Assessment & Plan: He is on chronic treatment with lithium, Provigil, and paroxetine. Time Spent on Plan of Care: < 30 min Exam Sepsis Risk: No Definite Risk Problem Qualifiers (1) Diabetic foot ulcer: Diabetic foot ulcer location: unspecified part of foot Diabetes mellitus type: type 2 Laterality: left Non-pressure ulcer stage: with fat layer exposed Qualified Codes: E11.621 - Type 2 diabetes mellitus with foot ulcer; L97.522 - Non-pressure chronic ulcer of other part of left foot with fat layer exposed (2) HTN (hypertension): Hypertension type: essential hypertension Qualified Codes: I10 - Essential (primary) hypertension CHRISTIAN MOMIN MD Jan 04, 2019 10:44
[2019-01-04] MEDS: ENOXAPARIN 40 MG/0.4ML SYR SC SCH (11:25)
[2019-01-04 11:26] VITALS: BP 164/87
[2019-01-04 15:02] VITALS: BP 155/83
[2019-01-04 18:59] VITALS: BP 161/74
[2019-01-04 23:22] VITALS: BP 147/67
[2019-01-05] MEDS: PIPERACILLIN/TAZO* 4.5 GM VIAL 4.5 GM in NS(*) 0.9% 100 ML MINI-BAG 100 ML IVPB SCH ×4 (03:36→22:31)
[2019-01-05 05:57] LABS: PLATELET COUNT, AUTOMATED 261 K/uL (150-450)
[2019-01-05 06:59] VITALS: BP 149/74
--- NOTE | 2019-01-05 07:37 | NUR ---
random blood glucose taken w/ morning labs of 131mg/dL. no fingerstick necessary. Addendum: 01/05/19 at 0738 by ALEJANDRA JOSUE RN Amended: Links added.
--- NOTE | 2019-01-05 08:45 | Hospitalist Progress Note ---
Subjective Progress Notes Subjective He denies any new complaints. No fever. Physical Exam Vital Signs Date Time Temp Pulse Resp B/P (MAP) Pulse Ox O2 Delivery O2 Flow Rate FiO2 01/05/19 08:14 86 01/05/19 08:13 Room Air 01/05/19 06:59 98.6 70 16 149/74 (99) 2.0 Intake and Output 01/05/19 07:00 Intake Total 920 ml Output Total 300 ml Balance 620 ml Intake Oral 920 ml Output Urine Total 300 ml # Voids 2 # Bowel Movements 3 General Appearance: Alert, Awake Integumentary: Other (erythema on dorsum of foot is less in several areas, but persistent in others/some drainage on dressing) Result Diagram: 01/05/19 0515 01/05/19 0515 Item Value Date Time Whole Blood Glucose 201 mg/DL H 01/04/19 2306 Whole Blood Glucose 262 mg/DL H 01/04/192023 Whole Blood Glucose 337 mg/DL H 01/04/19 1627 Whole Blood Glucose 280 mg/DL H 01/04/19 1129 Assessment and Plan Problems: (1) Cellulitis of left foot Status: Acute Assessment & Plan: He was noted to have increased redness to the dorsal surface of the left foot extending to the lower leg. An ink line was drawn on admission. His initial MRI (without contrast) showed osteomyelitis of the first metatarsal and a possible abscess. A repeat MRI with contrast confirms the same. He is currently on IV Zosyn. Dr. Klein evaluated him and is considering debridement. For now will continue IV antibiotics. DVT prophylaxis will be placed on hold after today's dose for possible surgical intervention on Sunday. (2) Diabetic foot ulcer Status: Chronic Assessment & Plan: He has been receiving wound care as an outpatient. (3) DMII (diabetes mellitus, type 2) Assessment & Plan: He is on chronic treatment with Lantus and metformin. The metformin has been stopped secondary to lactic acidosis. He has been placed on sliding scale level #2 in addition to his usual Lantus 30mg BID. Will decrease to one-half his usual dose starting tonight for planned surgery tomorrow. (4) HTN (hypertension) Status: Chronic Assessment & Plan: He is on chronic treatment with lisinopril. (5) Bipolar disorder Status: Chronic Assessment & Plan: He is on chronic treatment with lithium, Provigil, and paroxetine. Exam Sepsis Risk: No Definite Risk Problem Qualifiers (1) Diabetic foot ulcer: Diabetic foot ulcer location: unspecified part of foot Diabetes mellitus type: type 2 Laterality: left Non-pressure ulcer stage: with fat layer exposed Qualified Codes: E11.621 - Type 2 diabetes mellitus with foot ulcer; L97.522 - Non-pressure chronic ulcer of other part of left foot with fat layer exposed (2) HTN (hypertension): Hypertension type: essential hypertension Qualified Codes: I10 - Essential (primary) hypertension SIXTO MOMIN MD Jan 05, 2019 08:45
[2019-01-05] MEDS: MODAFINIL 100 MG TAB PO SCH (08:47)
[2019-01-05] MEDS: ENOXAPARIN 40 MG/0.4ML SYR SC SCH (08:47)
[2019-01-05] MEDS: LITHIUM CARBONATE 150 MG CAP PO SCH ×2 (08:47→21:23)
[2019-01-05] MEDS: LISINOPRIL 10 MG TAB PO SCH (08:48)
[2019-01-05] MEDS: PAROXETINE HCL 12.5 MG PO SCH (08:48)
[2019-01-05] MEDS: LOPERAMIDE HCL 2 MG CAP PO SCH ×2 (08:48→21:23)
--- NOTE | 2019-01-05 11:26 | General Surgery Progress Note ---
Subjective Progress Notes Subjective Feeling better, no new complaints. Physical Exam Vital Signs Date Time Temp Pulse Resp B/P (MAP) Pulse Ox O2 Delivery O2 Flow Rate FiO2 01/05/19 08:53 94 Nasal Cannula 1.5 01/05/19 06:59 98.6 70 16 149/74 (99) Intake and Output 01/05/19 07:00 Intake Total 920 ml Output Total 300 ml Balance 620 ml Intake Oral 920 ml Output Urine Total 300 ml # Voids 2 # Bowel Movements 3 General Appearance: Alert, Awake, No Acute Distress, Afebrile Extremities: Other (Dressing left foot clean dry and intact, cellulitis improving.) Result Diagram: 01/05/1951401/05/19514 Assessment and Plan Problems: (1) Diabetic foot ulcer Status: Chronic Assessment & Plan: 01/03/19: I have reviewed extensively the MRI results and it indicates that there is osteomyelitis in the head of the 1st metatarsal bone but there is no wound in the area of the head of the 1st metatarsal bone. He does have a diabetic ulcer on the plantar surface of the 5th metatarsal head. I don't feel any obvious communication with the bone and there is no obvious osteomyelitis at this location on MRI. I have discussed these findings extensively with our radiologist and she has recommended another MRI but with IV contrast and that this would probably, assuming he can keep his foot still for the duration of this study, improve our chances of determining where there is likely infection involving the bone. After this test is completed, would develop further plans based on those results. Recommend continuing wound care in the meantime and continuing IV antibiotics for cellulitis. If the MRI still reveals osteomyelitis in the 1st metatarsal head then may require debridement of the callus on the ball of his foot to see if there is any underlying wound. If there is osteomyelitis in the 1st and the 5th metatarsal head then we'll need to discuss transmetatarsal amputation versus BKA. He did discuss with me today that if any amputation is needed that he would like to proceed just with BKA since, on his other leg, he had sequential amputations of toes, then transmetatarsal amputation then BKA and he would like to avoid the prolonged course he experienced on the other side. I told him that I do not recommend proceeding directly with the BKA if only a single transmetatarsal/toe amputation is required but if more than one is required then the options would be TMA or BKA. I worry about his ability to ambulate on bilateral BKA's with bilateral prostheses especially in the context of his body habitus. He indicates his understanding of this discussion today and his questions have been answered and we will proceed with another MRI but with IV contrast and then developed more definitive plans after the study is completed. 01/04/19: Repeat MRI with contrast limited by movement. Still with question of osteomyelitis. 01/05/19: Responding nicely to antibiotics with WBC returning to normal and BS under better control. Cellulitis improving. Patient and his both had their questions answered. They understand the plan to be continued IV antibiotics, exam under anesthesia and debridement and possibly ray amputation later this week by Dr. Klein. (2) Cellulitis of left foot Status: Acute (3) Hx of right BKA Status: Chronic (4) Bipolar disorder Status: Chronic (5) Diabetes Status: Chronic (6) HTN (hypertension) Status: Chronic Exam Sepsis Risk: No Definite Risk Problem Qualifiers (1) Diabetic foot ulcer: Diabetic foot ulcer location: unspecified part of foot Diabetes mellitus type: type 2 Laterality: left Non-pressure ulcer stage: with fat layer exposed Qualified Codes: E11.621 - Type 2 diabetes mellitus with foot ulcer; L97.522 - Non-pressure chronic ulcer of other part of left foot with fat layer exposed (2) Diabetes: Diabetes mellitus type: type 2 Diabetes mellitus chcf insulin use: with chcf use Diabetes mellitus complication status: with neurologic complications Diabetes mellitus complication detail: with unspecified neur opathy Qualified Codes: E11.40 - Type 2 diabetes mellitus with diabetic neuro osmel, unspecified; Z79.4 - rodent exterminator (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
[2019-01-05 11:35] VITALS: BP 152/75
[2019-01-05] MEDS: INSULIN HUM LISPRO 100 UN/ML 3 ML VIAL SUBQ PRN ×3 (11:45→21:23)
[2019-01-05 16:05] VITALS: BP 167/86
[2019-01-05 19:52] VITALS: BP 149/75
[2019-01-05] MEDS ORDERED: INSULIN GLARGINE 100 U/ML 3 ML PEN SQ SCH (21:00)
[2019-01-05 23:12] VITALS: BP 122/65
[2019-01-06 03:30] VITALS: BP 161/92
[2019-01-06] MEDS: PIPERACILLIN/TAZO* 4.5 GM VIAL 4.5 GM in NS(*) 0.9% 100 ML MINI-BAG 100 ML IVPB SCH ×4 (04:03→21:47)
[2019-01-06 06:22] LABS: PLATELET COUNT, AUTOMATED 253 K/uL (150-450)
[2019-01-06 07:22] VITALS: BP 139/72
[2019-01-06] MEDS: MODAFINIL 100 MG TAB PO SCH (09:00)
--- NOTE | 2019-01-06 09:19 | General Surgery Progress Note ---
Subjective Progress Notes Subjective No complaints this morning. Physical Exam Vital Signs Date Time Temp Pulse Resp B/P (MAP) Pulse Ox O2 Delivery O2 Flow Rate FiO2 01/06/19 07:22 97.4 65 18 139/72 (94) 98 Nasal Cannula 2.0 Intake and Output 01/06/19 06:59 Intake Total 1666 ml Output Total 2250 ml Balance -584 ml Intake Oral 1340 ml IV Total 326 ml Output Urine Total 2250 ml # Voids 7 # Bowel Movements 2 General Appearance: Alert, Awake, No Acute Distress, Afebrile Extremities: Other (Left foot is warm and perfused. Cellulitis is resolving. Wound on plantar surface over 5th MTP joint is clean with serous drainage. No obvious tract to the bone with CTA probing. No skin breakdown or erythema /drainage over 1st MTP joint. Callous without fluctuance on plantar surface of 1st MTP joint.) Result Diagram: 01/06/1961301/06/19613 Assessment and Plan Problems: (1) Diabetic foot ulcer Status: Chronic Assessment & Plan: 01/03/19: I have reviewed extensively the MRI results and it indicates that there is osteomyelitis in the head of the 1st metatarsal bone but there is no wound in the area of the head of the 1st metatarsal bone. He does have a diabetic ulcer on the plantar surface of the 5th metatarsal head. I don't feel any obvious communication with the bone and there is no obvious osteomyelitis at this location on MRI. I have discussed these findings extensively with our radiologist and she has recommended another MRI but with IV contrast and that this would probably, assuming he can keep his foot still for the duration of this study, improve our chances of determining where there is likely infection involving the bone. After this test is completed, would develop further plans based on those results. Recommend continuing wound care in the meantime and continuing IV antibiotics for cellulitis. If the MRI still reveals osteomyelitis in the 1st metatarsal head then may require debridement of the callus on the ball of his foot to see if there is any underlying wound. If there is osteomyelitis in the 1st and the 5th metatarsal head then we'll need to discuss transmetatarsal amputation versus BKA. He did discuss with me today that if any amputation is needed that he would like to proceed just with BKA since, on his other leg, he had sequential amputations of toes, then transmetatarsal amputation then BKA and he would like to avoid the prolonged course he experienced on the other side. I told him that I do not recommend proceeding directly with the BKA if only a single transmetatarsal/toe amputation is required but if more than one is required then the options would be TMA or BKA. I worry about his ability to ambulate on bilateral BKA's with bilateral prostheses especially in the context of his body habitus. He indicates his understanding of this discussion today and his questions have been answered and we will proceed with another MRI but with IV contrast and then developed more definitive plans after the study is completed. 01/04/19: Repeat MRI with contrast limited by movement. Still with question of osteomyelitis. 01/05/19: Responding nicely to antibiotics with WBC returning to normal and BS under better control. Cellulitis improving. Patient and his both had their questions answered. They understand the plan to be continued IV antibiotics, exam under anesthesia and debridement and possibly ray amputation later this week by Dr. Garcia. 01/06/19: MRI again is discordant with physical exam. No signs of infection (externally) around 1st MTP joint. Cellulitis is getting much better. No obvious osteomyelitis over 5th MTP joint. Will have U/S dhiraj skin over fluid collection around 1st MTP joint and then I'll aspirate the fluid. If purulent, will I/D the collection and see if underlying bone is involved and, if so, will proceed with 1st ray amputation in day or two. If bone not involved, will continue with wound care. If fluid serous, no I/D and can go home tomorrow with continued wound care and PO abx and we'll see him and apply a total contact cast to offload 1st and 5th MTP joints, including the ulcer over the 5th MTP joint. I have explained this approach with the patient in great detail and he seems to understand this plan and he and his seem agreeable with this plan. (2) Cellulitis of left foot Status: Acute (3) Hx of right BKA Status: Chronic (4) Bipolar disorder Status: Chronic (5) Diabetes Status: Chronic (6) HTN (hypertension) Status: Chronic Condition Stable. Time Spent: < 30 min Exam Sepsis Risk: No Definite Risk Problem Qualifiers (1) Diabetic foot ulcer: Diabetic foot ulcer location: unspecified part of foot Diabetes mellitus type: type 2 Laterality: left Non-pressure ulcer stage: with fat layer exposed Qualified Codes: E11.621 - Type 2 diabetes mellitus with foot ulcer; L97.522 - Non-pressure chronic ulcer of other part of left foot with fat layer exposed (2) Bipolar disorder: Active/Remission status: remission status unspecified Qualified Codes: F31.9 - Bipolar disorder, unspecified (3) Diabetes: Diabetes mellitus type: type 2 Diabetes mellitus public health training assistant insulin use: with public health training assistant use Diabetes mellitus complication status: with neurologic complications Diabetes mellitus complication detail: with unspecified neuropathy Qualified Codes: E11.40 - Type 2 diabetes mellitus with diabetic neuropathy, unspecified; 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
[2019-01-06] MEDS: INSULIN HUM LISPRO 100 UN/ML 3 ML VIAL SUBQ PRN ×4 (09:26→20:31)
[2019-01-06] MEDS: LISINOPRIL 10 MG TAB PO SCH (09:27)
[2019-01-06] MEDS: LOPERAMIDE HCL 2 MG CAP PO SCH ×2 (09:27→20:34)
[2019-01-06] MEDS: LITHIUM CARBONATE 150 MG CAP PO SCH ×2 (09:27→20:29)
[2019-01-06] MEDS: INSULIN GLARGINE 100 U/ML 3 ML PEN SQ SCH ×2 (09:27→20:30)
[2019-01-06] MEDS: PAROXETINE HCL 12.5 MG PO SCH (09:27)
--- NOTE | 2019-01-06 10:24 | Hospitalist Progress Note ---
Subjective Progress Notes Subjective He was admitted with left foot cellulitis. He has no complaints this morning. He had no acute events overnight. Patient Complains of: Cardiovascular: No: Chest Pain Respiratory: No: Shortness of Breath Physical Exam Vital Signs Date Time Temp Pulse Resp B/P (MAP) Pulse Ox O2 Delivery O2 Flow Rate FiO2 01/06/19 09:32 98 Nasal Cannula 2.0 01/06/19 07:22 97.4 65 18 139/72 (94) Intake and Output 01/06/19 07:00 Intake Total 1666 ml Output Total 2250 ml Balance -584 ml Intake Oral 1340 ml IV Total 326 ml Output Urine Total 2250 ml # Voids 7 # Bowel Movements 2 General Appearance: Alert, Awake, No Acute Distress, Afebrile Neuro: No Gross deficits Cardiovascular: Regular Rate and Rhythm Respiratory: No Respiratory Distress, Clear to Auscultation GI: Soft and Non-Tender Integumentary: Other (cellulitis to left foot improving) Psych: Alert & Oriented X3, Appropriate Mood & Affect Result Diagram: 01/06/1961301/06/19613 Assessment and Plan Problems: (1) Cellulitis of left foot Status: Acute Assessment & Plan: He was noted to have increased redness to the dorsal surface of the left foot extending to the lower leg. An ink line was drawn on admission. His initial MRI (without contrast) showed osteomyelitis of the first metatarsal and a possible abscess. A repeat MRI with contrast confirms the same. He is currently on IV Zosyn. Dr. Klein evaluated him and is considering debridement. For now will continue IV antibiotics. DVT prophylaxis will be placed on hold after today's dose for possible surgical intervention/ abscess drainage on Sunday. (2) Diabetic foot ulcer Status: Chronic Assessment & Plan: He has been receiving wound care as an outpatient. (3) DMII (diabetes mellitus, type 2) Assessment & Plan: He is on chronic treatment with Lantus and metformin. The metformin has been stopped secondary to lactic acidosis. He has been placed on sliding scale level #2 in addition to his usual Lantus 30mg BID. (4) HTN (hypertension) Status: Chronic Assessment & Plan: He is on chronic treatment with lisinopril. (5) Bipolar disorder Status: Chronic Assessment & Plan: He is on chronic treatment with lithium, Provigil, and paroxetine. Exam Sepsis Risk: No Definite Risk Problem Qualifiers (1) Diabetic foot ulcer: Diabetic foot ulcer location: unspecified part of foot Diabetes mellitus type: type 2 Laterality: left Non-pressure ulcer stage: with fat layer exposed Qualified Codes: E11.621 - Type 2 diabetes mellitus with foot ulcer; L97.522 - Non-pressure chronic ulcer of other part of left foot with fat layer exposed (2) HTN (hypertension): Hypertension type: essential hypertension Qualified Codes: I10 - Essential (primary) hypertension (3) Bipolar disorder: Active/Remission status: remission status unspecified Qualified Codes: F31.9 - Bipolar disorder, unspecified THADDEUS COVARRUBIAS [facility] Jan 06, 2019 10:24
[2019-01-06 11:11] VITALS: BP 157/76
--- NOTE | 2019-01-06 15:40 | RADIOLOGY IMAGING REPORT ---
FACILITY: [facility] PATIENT NAME: Gallito Sanchez : 1960 MR: [id number] V: [id number] EXAM DATE: ORDERING PHYSICIAN: ANNA GARCIA TECHNOLOGIST: Location[place] [facility] [place] Patient: Gallito Sanchez : 1960 Visit/Account:[id number] Date of Sevice: 01/06/2019 EXAMINATION: Ultrasound of the left foot 01/06/2019 9:11 AM HISTORY: Gallito skin over fluid collection, 1st MTP joint lft foot COMPARISON: MR 01/03/2019 FINDINGS: Sonographic evaluation was done in the left foot medial to the first MTP area. A small he terogeneously hypoechoic collection of material or fluid was identified by the technologist. The col lection is now quite 3 mm deep to the skin and measures 1.5 x 0.6 cm. IMPRESSION: 1.5 cm heterogeneous collection deep to the skin was localized adjacent to the area of th e left first metatarsal head. Report Dictated By: Esau Medrano MD at 01/06/2019 3:32 PM Report E-Signed By: Esau Medrano MD at 01/06/2019 3:36 PM WSN:LAURA
[2019-01-06 18:37] VITALS: BP 151/85
[2019-01-06 23:08] VITALS: BP 136/76
[2019-01-07] MEDS: PIPERACILLIN/TAZO* 4.5 GM VIAL 4.5 GM in NS(*) 0.9% 100 ML MINI-BAG 100 ML IVPB SCH (03:47)
[2019-01-07] MEDS: INSULIN HUM LISPRO 100 UN/ML 3 ML VIAL SUBQ PRN ×2 (07:31→11:25)
[2019-01-07 07:58] VITALS: BP 153/86
--- NOTE | 2019-01-07 08:04 | General Surgery Progress Note ---
Subjective Progress Notes Subjective No complaints this morning. Physical Exam Vital Signs Date Time Temp Pulse Resp B/P (MAP) Pulse Ox O2 Delivery O2 Flow Rate FiO2 01/07/19 07:30 90 Nasal Cannula 2.0 01/06/19 23:08 97.5 72 24 136/76 (96) Intake and Output 01/07/19 07:00 Intake Total 1630 ml Output Total 650 ml Balance 980 ml Intake Oral 1210 ml IV Total 420 ml Output Urine Total 650 ml # Voids 3 # Bowel Movements 1 General Appearance: Alert, Awake, No Acute Distress, Afebrile Extremities: Other (Left foot ulcer over plantar side of 5th MT head is clean with serous drainage. Incision on medial 1st MT head from I/D is clean with only a small amount of serosanguinous drainage. Erythema on dorsum of foot continues to decrease.) Result Diagram: 01/06/19 0614 01/06/1914 Assessment and Plan Problems: (1) Diabetic foot ulcer Status: Chronic Assessment & Plan: 01/03/19: I have reviewed extensively the MRI results and it indicates that there is osteomyelitis in the head of the 1st metatarsal bone but there is no wound in the area of the head of the 1st metatarsal bone. He does have a diabetic ulcer on the plantar surface of the 5th metatarsal head. I don't feel any obvious communication with the bone and there is no obvious osteomyelitis at this location on MRI. I have discussed these findings extensively with our radiologist and she has recommended another MRI but with IV contrast and that this would probably, assuming he can keep his foot still for the duration of this study, improve our chances of determining where there is likely infection involving the bone. After this test is completed, would develop further plans based on those results. [facility] and continuing IV antibiotics for cellulitis. If the MRI still reveals osteomyelitis in the 1st metatarsal head then may require debridement of the callus on the ball of his foot to see if there is any underlying wound. If there is osteomyelitis in the 1st and the 5th metatarsal head then we'll need to discuss transmetatarsal amputation versus BKA. He did discuss with me today that if any amputation is needed that he would like to proceed just with BKA since, on his other leg, he had sequential amputations of toes, then transmetatarsal amputation then BKA and he would like to avoid the prolonged course he experienced on the other side. I told him that I do not recommend proceeding di rectly with the BKA if only a single transmetatarsal/toe amputation is required but if more than one is required then the options would be TMA or BKA. I worry about his ability to ambulate on bilateral BKA's with bilateral prostheses especially in the context of his body habitus. He indicates his understanding of this discussion today and his questions have been answered and we will proceed with another MRI but with IV contrast and then developed more definitive plans after the study is completed. 01/04/19: Repeat MRI with contrast limited by movement. Still with question of osteomyelitis. 01/05/19: Responding nicely to antibiotics with WBC returning to normal and BS under better control. Cellulitis improving. Patient and his both had their questions answered. They understand the plan to be continued IV antibiotics, exam under anesthesia and debridement and possibly ray amputation later this week by Dr. Garcia. 01/06/19: MRI again is discordant with physical exam. No signs of infection (externally) around 1st MTP joint. Cellulitis is getting much better. No obvious osteomyelitis over 5th MTP joint. Will have U/S dhiraj skin over fluid collection around 1st MTP joint and then I'll aspirate the fluid. If purulent, will I/D the collection and see if underlying bone is involved and, if so, will proceed with 1st ray amputation in day or two. If bone not involved, will continue with wound care. If fluid serous, no I/D and can go home tomorrow with continued wound care and PO abx and we'll see him and apply a total contact cast to offload 1st and 5th MTP joints, including the ulcer over the 5th MTP joint. I have explained this approach with the patient in great detail and he seems to understand this plan and he and his seem agreeable with this plan. 01/07/19: Doing well. Fluid collection adjacent to 1st MT head I/Ded last evening, not obviously purulent fluid, more like bloody synovial fluid. Recommend converting him to PO abx with d/c to home today and I'll see him back in my office tomorrow and will continue to follow over time. May repeat MRI in the next 2-4 weeks. (2) Cellulitis of left foot Status: Acute (3) Hx of right BKA Status: Chronic (4) Bipolar disorder Status: Chronic (5) Diabetes Status: Chronic (6) HTN (hypertension) Status: Chronic Condition Stable. Time Spent: < 30 min Exam Sepsis Risk: No Definite Risk Problem Qualifiers (1) Diabetic foot ulcer: Diabetic foot ulcer location: unspecified part of foot Diabetes mellitus type: type 2 Laterality: left Non-pressure ulcer stage: with fat layer exposed Qualified Codes: E11.621 - Type 2 diabetes mellitus with foot ulcer; L97.522 - Non-pressure chronic ulcer of other part of left foot with fat layer exposed (2) Bipolar disorder: Active/Remission status: remission status unspecified Qualified Codes: F31.9 - Bipolar disorder, unspecified (3) Diabetes: Diabetes mellitus type: type 2 Diabetes mellitus intermediate insulin use: with intermediate use Diabetes mellitus complication status: with neurologic complications Diabetes mellitus complication detail: with unspecified neuropathy Qualified Codes: E11.40 - Type 2 diabetes mellitus with diabetic neuropathy, unspecified; Z79.4 - FPC (current) use of insulin (4) HTN (hypertension): Hypertension type: essential hypertension Qualified Codes: I10 - Essential (primary) hypertension ANNA GARCIA MD Jan 07, 2019 08:04
--- NOTE | 2019-01-07 08:07 | Miscellaneous Provider Note ---
Miscellaneous Provider Note Note 01/06/19 at approximately 1700: Left foot I/D of fluid collection seen on MRI medial to 1st MT head. No anethesia used due to neuropathy with inherant anesthesia. Thick bloody synovial fluid evacuated. Pt tolerated the procedure without problems. Wound packed with short segment of 1/4 inch plain packing strip. ANNA GARCIA MD Jan 07, 2019 08:07
[2019-01-07] MEDS: MODAFINIL 100 MG TAB PO SCH (08:43)
[2019-01-07] MEDS: INSULIN GLARGINE 100 U/ML 3 ML PEN SQ SCH (08:43)
[2019-01-07] MEDS: LITHIUM CARBONATE 150 MG CAP PO SCH (08:43)
[2019-01-07] MEDS: LOPERAMIDE HCL 2 MG CAP PO SCH (08:43)
[2019-01-07] MEDS: LISINOPRIL 10 MG TAB PO SCH (08:44)
[2019-01-07] MEDS: PAROXETINE HCL 12.5 MG PO SCH (08:44)
[2019-01-07] MEDS ORDERED: AMOX/CLAV 875 MG TAB PO SCH (08:50)
[2019-01-07] MEDS ORDERED: AMOX1TAB9 PO (09:53)
--- NOTE | 2019-01-07 10:00 | Hospitalist Depart ---
Discharge Summary Reason for Hosp/Final Diag: (1) Cellulitis of left foot Status: Acute Hospital Course & Plan: He was noted to have increased redness to the dorsal surface of the left foot extending to the lower leg. An ink line was drawn on admission. His initial MRI (without contrast) showed osteomyelitis of the first metatarsal and a possible abscess. A repeat MRI with contrast confirms the same. He was placed on IV Zosyn and will be transitioned to Augmentin for ten additional days. He will follow up with Dr. Garcia tomorrow as an outpatient. (2) Diabetic foot ulcer Status: Chronic Hospital Course & Plan: He has been receiving wound care as an outpatient. (3) DMII (diabetes mellitus, type 2) Hospital Course & Plan: He is on chronic treatment with Lantus and metformin. The metformin was stopped secondary to lactic acidosis upon admission, but will restart today 01/07. He should follow up with his PCP in one week to re-evaluate if lactic acidosis has reoccurred on Metformin. He was placed on sliding scale level #2 in addition to his usual Lantus 30mg BID. (4) HTN (hypertension) Status: Chronic Hospital Course & Plan: He is on chronic treatment with lisinopril. (5) Bipolar disorder Status: Chronic Hospital Course & Plan: He is on chronic treatment with lithium, Provigil, and paroxetine. Departure Latest Vital Signs Vital Signs 01/07/19 01/07/19 07:58 08:53 Temp 97.8 Pulse 69 Resp 16 B/P (MAP) 153/86 (108) Pulse Ox 84 O2 Delivery Nasal Cannula O2 Flow Rate 2.0 Weight (Pounds): 295 Weight (Ounces): 8.0 Result Diagram: 01/06/1961301/06/19613 Condition: Improved Discharge: Home, Self Care Discharge Instructions Home Meds Active Scripts Amoxicillin/Potassium Clav (AMOX TR-K CLV 875-125 MG TAB) 1 Each Tablet, 875 MG PO BIDBS for 10 Days, #20 TAB Prov:THADDEUS COVARRUBIAS 01/07/19 Reported Medications Insulin Glargine 100 Un/Ml Pen (LANTUS SOLOSTAR PEN) 100 Unit/1 Ml Insuln.pen, 30 UNIT SQ BID 02/19/15 Lisinopril (LISINOPRIL) 10 Mg Tablet, 10 MG PO QDAY 02/19/15 Paroxetine Hcl (PAROXETINE HCL) 25 Mg Tab.er.24h, 2 TAB PO QAM 02/19/15 Modafinil (PROVIGIL) 200 Mg Tablet, 0.5 TAB PO QAM 02/19/15 Verdon Carbonate (LITHIUM CARBONATE) 300 Mg Cap, 150 MG PO BID, CAP 02/19/15 Metformin Hcl (METFORMIN HCL) 1,000 Mg Tablet, 1 TAB PO BID, TAB 02/19/15 Discontinued Reported Medications Quetiapine Fumarate (SEROQUEL) 25 Mg Tablet, 2 TAB PO QHS 02/19/15 Discontinued Scripts Amoxicillin/Potassium Clav (AMOX TR-K CLV 875-125 MG TAB) 1 Each Tablet, 1 TAB PO Q12H, #14 TAB 0 Refills Prov:ANNA GARCIA MD 04/13/15 Diet: Diabetic Activity: As Tolerated Special Instructions: Follow up with Dr. Espinoza in 1 week for diabetes. Take antibiotics as directed. Follow up with Dr. Garcia as scheduled. Copies to: SOFIYA ESPINOZA DO ; Venous Thromboembolism Antithrombotics Is Pt On Any Antithrombotics?: No Problem Qualifiers (1) Diabetic foot ulcer: Diabetic foot ulcer location: unspecified part of foot Diabetes mellitus type: type 2 Laterality: left Non-pressure ulcer stage: with fat layer exposed Qualified Codes: E11.621 - Type 2 diabetes mellitus with foot ulcer; L97.522 - Non-pressure chronic ulcer of other part of left foot with fat layer exposed (2) HTN (hypertension): Hypertension type: essential hypertension Qualified Codes: I10 - Essential (primary) hypertension (3) Bipolar disorder: Active/Remission status: remission status unspecified Qualified Codes: F31.9 - Bipolar disorder, unspecified THADDEUS COVARRUBIASP Jan 07, 2019 10:00
== END 2019-01-07 12:55 | disposition home or self-care (01) | DRG 540 ==
LOC: ER 16:00 → MED 17:11
PROVIDERS: ADMIT Family Medicine; ATTEND Family Medicine
PROC: 0J9R3ZX Drainage of Left Foot Subcutaneous Tissue and Fascia, Percutaneous Approach, Diagnostic (ICD-10-PCS; principal; 2019-01-07)
DX: M86.9 Osteomyelitis, unspecified (principal); L03.116 Cellulitis of left lower limb; E87.2 Acidosis; L02.612 Cutaneous abscess of left foot; E11.621 Type 2 diabetes mellitus with foot ulcer; I10 Essential (primary) hypertension; E11.40 Type 2 diabetes mellitus with diabetic neuropathy, unspecified; E11.65 Type 2 diabetes mellitus with hyperglycemia; F31.9 Bipolar disorder, unspecified; L97.522 Non-pressure chronic ulcer of other part of left foot with fat layer exposed; Z89.511 Acquired absence of right leg below knee; Z79.4 Long term (current) use of insulin; Z79.84 Long term (current) use of oral hypoglycemic drugs; Z87.891 Personal history of nicotine dependence
CPT/HCPCS: 36415; 36416; 71046; 73720; 76999; 80178; 81001; 82040; 82247; 82310; 82374; 82435; 82565; 82947; 82948; 83605; 84075; 84132; 84155; 84295; 84450; 84460; 84520; 85025; 87040; 87070; 87073; 94667; 94668; 96361; 96365; 99285; A9577; J1650; J1815; J2060; J2543; J7030